=== PATIENT | female | born 1965 | race Two or more races ===

== ENCOUNTER 2025-03-14 07:33 | Outpatient (CLI) | payer BC ==
[2025-03-14 08:54] LABS: Anion Gap 7 (5-15); Calcium 10.1 mg/dL (8.7-10.4); Carbon Dioxide 27 mmol/L (20-31); Potassium 4.3 mmol/L (3.5-5.1); Sodium 142 mmol/L (136-145)
[2025-03-14 09:00] LABS: BUN/Creatinine Ratio 13.9 (10.0-20.0); Blood Urea Nitrogen 11 mg/dL (9-23); Glucose 92 mg/dL (74-106)
[2025-03-14 09:01] LABS: Chloride 108 mmol/L (98-107)
== END 2025-03-14 17:00 | disposition home or self-care (01) ==
LOC: LAB 07:33
PROVIDERS: ATTEND Internal Medicine
DX: I10 Essential (primary) hypertension (principal)
CPT/HCPCS: 36415; 80048